=== PATIENT | female | born 2005 | race Caucasian/White ===

== ENCOUNTER 2024-03-02 11:11 | Outpatient (CLI) | payer OTHER, SELFPAY ==
[2024-03-03 07:32] LABS: Varicella IgG Antibody <1.00 S/CO
== END 2024-03-02 11:12 | disposition home or self-care (01) ==
LOC: ANHLAB 11:13
PROVIDERS: Visit Provider Student in an Organized Health Care Education/Training Program
DX: Z34.90 Encounter for supervision of normal pregnancy, unspecified, unspecified trimester (principal)
CPT/HCPCS: 36415; 86644; 86747; 86787

== ENCOUNTER 2024-04-18 14:14 | Outpatient (CLI) | payer OTHER, SELFPAY ==
[2024-04-18 20:36] LABS: Basophils Absolute Auto 0.1 K/mm3 (0.0-0.1); Basophils Percent Auto 0.3 % (0.2-1.2); Eosinophils Absolute Auto 0.2 K/mm3 (0-0.3); Eosinophils Percent Auto 1.3 % (0-4.4); Hematocrit 32.9 % (37.0-47.0); Hemoglobin 10.4 g/dL (12.0-15.0); Immature Granulocyte Absolute 0.16 K/mm3 (0.00-0.031); Lymphocytes Absolute Auto 1.86 K/mm3 (0.9-3.2); Lymphocytes Percent Auto 11.8 % (18.3-44.2); Mean Corpuscular HGB Conc 31.6 g/dl (32-36); Mean Corpuscular Hemoglobin 31.7 pg (26-34); Mean Corpuscular Volume 100.3 fl (80-100); Mean Platelet Volume 10.6 fl (7.4-10.4); Monocytes Absolute Auto 1.1 K/mm3 (0.1-0.6); Monocytes Percent Auto 6.9 % (2.6-8.5); Neutrophils Absolute Auto 12.4 K/mm3 (1.3-6.7); Neutrophils Percent Auto 78.7 % (45.5-73.1); Platelet Count Result 346 k/mm3 (150-375); Red Blood Count 3.28 M/mm3 (4.2-5.4); Red Cell Distribution Width 12.7 % (11.5-14.5); White Blood Count 15.7 K/mm3 (4.5-10.0)
[2024-04-18 20:49] LABS: Glucose 1 Hour PP 50gm Dose 116 mg/dL
[2024-04-19 00:43] LABS: HIV 1/2 Ab P24 Ag Result Negative (Negative)
[2024-04-19 10:46] LABS: Rapid Plasma Reagin Non-Reactive (NonReactive)
== END 2024-04-18 14:15 | disposition home or self-care (01) ==
LOC: ANHGOSHLAB 14:15
PROVIDERS: Visit Provider Obstetrics & Gynecology
DX: Z34.90 Encounter for supervision of normal pregnancy, unspecified, unspecified trimester (principal)
CPT/HCPCS: 36415; 82947; 85025; 86592; 86703; G0432

== ENCOUNTER 2024-06-19 10:05 | Outpatient (CLI) | payer OTHER, SELFPAY ==
[2024-06-19 10:50] VITALS: BP 135/80; PULSE 98
[2024-06-19 11:06] LABS: OBXCEM ROM Plus Negative (Negative)
--- NOTE | 2024-06-19 18:40 | PM.OBTRLD ---
OB - Triage/Final Diagnosis Visit Information Date of evaluation: 06/19/24 Reason for evaluation: other (leaking) Comments/Additional reasons for admission: I have assessed the risk for this patient, Pavan Butler Noni, and determined that she would benefit from observation care. Evaluation Laboratory results: Laboratory Tests 06/19/24 10:45 Membranes Rupture Rom plus negative Vital signs: Vital Signs - 24 hr 06/19/24 10:50 Pulse Rate 98 Blood Pressure [Left Arm] 135/80
== END 2024-06-19 10:58 | disposition home or self-care (01) ==
LOC: ANHOBOP 10:48 → ANHLDR 10:54
PROVIDERS: Student in an Organized Health Care Education/Training Program; Visit Provider Obstetrics & Gynecology
DX: O42.90 Premature rupture of membranes, unspecified as to length of time between rupture and onset of labor, unspecified weeks of gestation (principal); Z3A.00 Weeks of gestation of pregnancy not specified
CPT/HCPCS: 59025; 84112; 99199

== ENCOUNTER 2024-07-08 05:10 | Inpatient (IN) | payer OTHER, SELFPAY ==
[2024-07-08] VITALS (178 sets, daily range): BP systolic 103–149; BP diastolic 52–99; PULSE 25–154; RESP 16; TEMP 36.3–37.1; O2SAT 74–100; BMI 36.6
--- NOTE | 2024-07-08 05:51 | LDADM ---
This patient, Pavan Cheney, was admitted to Labor/Delivery/Recovery 106 on 07/08/24 at 05:10. Plans for labor, pain management and were discussed with patient. Patient/family oriented to hospital policies and general routines including ID bracelet, bed and alarms, visiting hours, pain management, procedures, bathroom and other care routines, personal items, smoking policy, room service/diet and guest tray routines, security routines, and visiting hours. Patient/Family are encouraged to report perceived risks to care and to ask questions if they do not understand what they are told or what they should do. See OBIX for further documentation.
[2024-07-08 05:53] LABS: Basophils Absolute Auto 0.1 K/mm3 (0.0-0.1); Basophils Percent Auto 0.4 % (0.2-1.2); Eosinophils Absolute Auto 0.1 K/mm3 (0-0.3); Eosinophils Percent Auto 0.9 % (0-4.4); Hematocrit 35.8 % (37.0-47.0); Hemoglobin 11.6 g/dL (12.0-15.0); Immature Granulocyte Absolute 0.12 K/mm3 (0.00-0.031); Immature Granulocyte Percent A 0.9 % (0-0.5); Lymphocytes Absolute Auto 2.23 K/mm3 (0.9-3.2); Lymphocytes Percent Auto 16.1 % (18.3-44.2); Mean Corpuscular HGB Conc 32.4 g/dl (32-36); Mean Corpuscular Volume 98.6 fl (80-100); Mean Platelet Volume 11.7 fl (7.4-10.4); Monocytes Percent Auto 7.2 % (2.6-8.5); Neutrophils Absolute Auto 10.3 K/mm3 (1.3-6.7); Neutrophils Percent Auto 74.5 % (45.5-73.1); Platelet Count Result 242 k/mm3 (150-375); Red Blood Count 3.63 M/mm3 (4.2-5.4); Red Cell Distribution Width 13.5 % (11.5-14.5); White Blood Count 13.8 K/mm3 (4.5-10.0)
[2024-07-08] MEDS: LACTATED RINGERS 1,000 ML 125 ML IV CONT ×2 (05:59→08:18)
[2024-07-08] MEDS: OXYTOCIN 30 UNITS/NS 500 ML 30 UNITS/500 ML BAG 6 UNITS IV CONT (06:00)
--- NOTE | 2024-07-08 06:00 | P.PNAN_ITS ---
Anes - Eval Pre Procedure Procedure: labor epidural Date/Time: 07/08/24 06:00 Surgeon: selene Preop Diagnosis: pain during labor Pre Op Diagnosis: IOL Patient Data Age: 19 Gender: F Height: 1.65 m Weight: 100 kg Last Vital Signs O2 Del Method Room Air 07/08/24 05:50 Allergies Allergy/AdvReac Type Severity Reaction Status Date / Time No Known Allergies Allergy Verified 07/04/24 10:59 Home Medications ?Medication ?Instructions ?Recorded ?Confirmed ?Type vits no.126-ferrous fum tablet PO 01/04/24 07/04/24 History 28 mg iron-folic acid 800 mcg tablet (Classic ) lansoprazole 30 mg delayed 30 mg PO DAILY #30 tabs 01/15/24 07/04/24 Rx release,disintegrating tablet ferrous sulfate 325 mg (65 mg 325 mg PO DAILY 04/20/24 07/04/24 History iron) tablet Laboratory Tests 07/08/24 05:46 WBC 13.8 H K/mm3 (4.5-10.0) RBC 3.63 L M/mm3 (4.2-5.4) Hgb 11.6 L g/dL (12.0-15.0) Hct 35.8 L % (37.0-47.0) MCV 98.6 fl (80-100) MCH 32.0 pg (26-34) MCHC 32.4 g/dl (32-36) RDW 13.5 % (11.5-14.5) Plt Count 242 k/mm3 (150-375) MPV 11.7 H fl (7.4-10.4) Immature Gran % (Auto) 0.9 H % (0-0.5) Neut % (Auto) 74.5 H % (45.5-73.1) Lymph % (Auto) 16.1 L % (18.3-44.2) [place] % (Auto) 7.2 % (2.6-8.5) Eos % (Auto) 0.9 % (0-4.4) Baso % (Auto) 0.4 % (0.2-1.2) Lymph # (Auto) 2.23 K/mm3 (0.9-3.2) [place] # (Auto) 1.0 H K/mm3 (0.1-0.6) Eos # (Auto) 0.1 K/mm3 (0-0.3) Baso # (Auto) 0.1 K/mm3 (0.0-0.1) Abs Immat Gran (auto) 0.12 H K/mm3 (0.00-0.031) Absolute Neuts (auto) 10.3 H K/mm3 (1.3-6.7) Absolute Nucleated RBC 0.000 K/mm3 (0.0-0.012) Nucleated RBC % 0.0 % (0.0-0.2) HIV 1&2 Ab/P24 Ag 4thGn Pending Patient hx anesthesia problems: none Family hx anesthesia problems: none Results Review: All pre-operative results and documents have been reviewed as part of the pre- operative evaluation. [facility] Past Medical History Medical History (Updated 07/08/24 @ 06:00 by Jeanna Varela CRNA) Obesity (BMI 30-39.9) Esophagitis Surgical History Surgical History H/O esophagogastroduodenoscopy Family History Family History Grandparent Heart disease Diabetes mellitus Social History Social History Smoking status: Never smoker Alcohol intake: never Substance use: never Substance use type: does not use Do You Feel Safe in your Home?: Yes Lack of Transportation: No Lack of Food: Never True Current Housing: I Have Housing Concerned About Future Housing: No Difficulty Paying Gas/Electric Bills: No Difficulty Paying for Meds: No Currently Unemployed: No Education: High School Diploma/GED Difficulty w/ Childcare or Family Care: No Living arrangements: with family Occupation/Education: occupation Gender identity (if verbalized by the patient): Female Sexual Orientation (if Verbalized by the Patient): Straight or Heterosexual Spiritual care concerns: No Exam Day of Procedure 07/08/24 06:00
[2024-07-08 06:35] LABS: Syphilis IgG/IgM Antibody Negative (Negative)
[2024-07-08 06:48] LABS: HIV 1/2 Ab P24 Ag Result Negative (Negative)
[2024-07-08] MEDS: fentaNYL CITRATE INJ (*CRX) 100 MCG/2 ML VIAL IV PUSH (07:57)
--- NOTE | 2024-07-08 14:21 | WPDHPUPDATE1 ---
History and Physical Update Update Date/Time: 07/08/24 14:21 History and Physical has been reviewed, including an updated exam of the patient. There are NO changes in the patient's condition. Risks, benefits, and alternatives have been discussed and questions answered. Patient agrees to proceed with procedure.
--- NOTE | 2024-07-08 14:21 | WPDOBADMIT ---
Obstetrics - Admit Note Admission Note: record reviewed. No pertinent additions to the history and/or any subsequent changes in the physical findings that are not consistent with the expected course of the were found. Additions to the history and/or subsequent changes in the physical findings follow. None.
--- NOTE | 2024-07-08 14:21 | PM.OBPRVD ---
OB - Vaginal Delivery Note Procedure Delivery date: 07/08/24 Induction method: AROM and Per Pitocin Protocol Delivery monitor: External FHT and External Uterine Route of delivery: Episiotomy description: None Laceration Description: Perineal - 2nd Degree Delivery repair: chromic Specimen: Yes Quantitative Blood Loss (ml): 400 Anesthesia type: Epidural Disposition: Floor Complications: No immediate complications Narrative: Patient prepped draped usual manner for this procedure. Maternal expulsive efforts readily deliver vertex, rest of baby was delivered without difficulty. Cord was clamped and cut. Placenta delivered spontaneously. Uterus well contracted. Second-degree laceration was noted. This was approximated using 2 chromic running interlocking manner to approximate the vaginal tissue, subcuticular tissue was also approximated and perineal suture was used to approximate the skin edges. Uterus well contracted, no significant bleeding. Immediate postoperative condition the patient was excellent. Baby Gestational Age by Date: 40 Infant gender: Female presentation: vertex position: Left Occiput Anterior Placenta delivery description: Spontaneous Cord Vessel Description: 3 Vessels
[2024-07-08] MEDS: OXYTOCIN 30 UNITS/NS 500 ML 30 UNITS/500 ML BAG 125 UNITS IV CONT (14:30)
--- NOTE | 2024-07-08 17:45 | OBPPTRN ---
1745-Patient transferred to post room #285 via wheelchair. Support person present. Oriented to unit, room, information board, rooming in, admission packet and security measures. Patient verbalizes understanding.
--- NOTE | 2024-07-08 18:18 | PC.NURSE ---
Breast pump provided due to baby is in Level II Nursery and mother does not have her pump here with her. Instructions given on cleaning, care, usage, that there should be no pain, pumping schedule for milk production, collection, and storage of human milk. Patient was assessed for correct placement, flange size, to pump for comfort and nipple stretching/stimulation for adequate milk production every 3 hours (8 times in 24 hours) 1-2 times at night. Parents are encouraged to record the pumping schedule on the feeding sheet.?Mother voiced understanding of the education shared along with mom/baby guide and the pump measurement, flange fit handout for additional resource information. Reported to the Primary RN.
[2024-07-08] MEDS: IBUPROFEN 600 MG TABLET PO (22:34)
[2024-07-08] MEDS: ACETAMINOPHEN 325 MG TABLET 650 MG PO (22:34)
[2024-07-09 04:39] LABS: Hematocrit 32.4 % (37.0-47.0); Hemoglobin 10.2 g/dL (12.0-15.0)
[2024-07-09 08:00] VITALS: BP 120/74; PULSE 111; RESP 16; TEMP 36.4; O2SAT 98
[2024-07-09] MEDS: DOCUSATE SODIUM 100 MG CAPSULE PO (09:32)
[2024-07-09] MEDS: ACETAMINOPHEN 325 MG TABLET 650 MG PO ×3 (09:36→23:55)
[2024-07-09] MEDS: IBUPROFEN 600 MG TABLET PO ×3 (09:36→23:55)
--- NOTE | 2024-07-09 09:54 | P.PNOB_ITS ---
OB - PN: Subj Subjective Date/time seen: 07/09/24 09:54 Patient comments: pain well controlled, tolerating diet and other (Decreasing lochia.) baby status: doing well and nursing well [place] feeding status: exclusively breast feeding OB - PN: Obj Data Labs 07/09/24 04:03 Labs: Laboratory Results - last 24 hr 07/09/24 04:03 Hgb 10.2 L Hct 32.4 L OB - PN A/P Plan day: 1 Plan: routine care Comments: Patient doing well. Time Spent With Patient Time: Total time spent is greater than 50% in coordination of care (as documented) at patient's floor/unit and/or counseling patient: Exam 2 Psych: Affect: normal affect Other: Abd: fundus firm below umbilicus, nontender Perineum: healing Ext: nontender
[2024-07-09 20:00] VITALS: BP 130/81; PULSE 90; RESP 18; TEMP 36.5; O2SAT 100
--- NOTE | 2024-07-10 07:00 | P.PNOB_ITS ---
OB - PN: Subj Subjective Date/time seen: 07/10/24 07:00 Patient comments: pain well controlled, tolerating diet and other (Decreasing lochia.) baby status: doing well and nursing well OB - PN: Obj Data Labs 07/09/24 04:03 OB - PN A/P Plan day: 2 Plan: discharge home and other Comments: Patient doing well. Follow up 4-6 weeks. Discharge instructions provided. Time Spent With Patient Time: Total time spent is greater than 50% in coordination of care (as documented) at patient's floor/unit and/or counseling patient: Time with patient: less than 15 minutes Exam 2 Psych: Affect: normal affect Other: Abd: fundus firm below umbilicus, nontender Perineum: healing Ext: nontender
--- NOTE | 2024-07-10 07:01 | P.DS_ITS ---
DS: Admitting Diagnosis Discharge Date 07/10/24 Admitting Diagnosis Induction of labor DS: Discharge Diagnosis Discharge Diagnosis (1) Vaginal delivery: Code(s): O80 - Encounter for full-term uncomplicated delivery Status: Acute OB - DS: Summary Hospital Course Hospital Course: She was admitted for medical induction of labor. She had an uncomplicated vaginal delivery. She did well . She was discharged to home with baby on day 2. OB Procedures : Ultrasound OB Procedures Intrapartum: Spontaneous Vag Delivery OB Procedures: : None Peripartum Data Infant Delivery Method: Natural Vaginal Laceration Description: Perineal - 2nd Degree Episiotomy description: None complications: none Status at Discharge Functional status at discharge: independent ambulation Time Spent with Patient Time attestation: Total time spent providing and/or coordinating discharge services: Exam Const: General: cooperative Orientation/consciousness: oriented to person, oriented to place and oriented to time HENMT: Face/Nose/Sinus: Normal external nose present Eyes: General: appearance normal, both eyes and all related structures Resp: Effort & Inspection: normal respiratory effort GI: Inspection: normal to inspection Skin: General skin exam: normal color Neuro: General: oriented to person, oriented to place and oriented to time Extrem: General: normal to inspection and no calf tenderness Psych: Appearance: grossly normal Mental Status: mental status grossly normal Discharge Plan Discharge Attending physician on discharge: Rick Houston Consulting providers: Jeanna Varela Discharging Clinician: Jhony Martel Anticipated Discharge Date/Time: 07/10/24 07:09 Patient Disposition: Home Activity: may shower and pelvic rest Diet: regular Patient Instructions: Antibiotic Form Patient Language: Serbian Stand Alone Forms: General Discharge Information Follow-up/Referrals: Rick Houston MD [Physician] - Call for Appointment Discharge Medications: Continued Classic 28 mg iron- 800 mcg tablet 1 tablet PO DAILY lansoprazole 30 mg tablet,disintegrat, delay rel 30 mg PO DAILY Qty: 30 3RF No Action ferrous sulfate 325 mg (65 mg iron) tablet 325 mg PO DAILY Date of admission: 07/08/24 05:10 Primary Care Provider: UNKNOWN,DOCTOR Admitting Provider: Rick Houston Attending physician on admission: Rick Houston Condition: Stable
[2024-07-10 08:00] VITALS: BP 118/69; PULSE 96; RESP 16; TEMP 37.3; O2SAT 98
[2024-07-10] MEDS: IBUPROFEN 600 MG TABLET PO (09:19)
[2024-07-10] MEDS: DOCUSATE SODIUM 100 MG CAPSULE PO (09:19)
[2024-07-10] MEDS: ACETAMINOPHEN 325 MG TABLET 650 MG PO (09:19)
[2024-07-10] MEDS: MEASLES,MUMPS,RUBELLA VACCINE 0.5 ML VIAL SUB-Q (10:53)
--- NOTE | 2024-07-10 11:34 | PC.NURSE ---
Patient viewed the discharge video Mother & Baby Care, The First Two Weeks . Patient was given the opportunity and encouraged to ask questions. Patient verbalized understanding of information shared and has been given the mother/baby guide for home reference.
--- NOTE | 2024-07-11 13:00 | PC.NURSE ---
Follow up RN called to request a consult with this patient. She delivered over the weekend when there was no support. Mom was given a nipple shield and started pumping. She is wanting to latch without the shield. Baby is eager and awake so we placed her at breast and mom needed minimal assistance to latch her in cradle hold. Mom says she did not like cross cradle hold. Baby had some cheek dimpling and was off and on the breast after every suckling burst. Milk was noted to be dripping from mom's nipple and she states that her breasts feel very full and firm today. We reviewed signs of a deep latch and we moved baby into a football hold to see if that assisted her to maintain a latch more efficiently. Baby did quite well in football and was not off/on as much with an increase in swallows noted and no cheek dimpling. Mom states the latch is not painful. Mom is encouraged to use the nipple shield if needed but we discussed ways to wean from the shield as well as how often to pump while using the shield. Mom has a good routine for pumping when baby doesn't feed at both breasts. We reviewed stool output and color and noting that the breast feels empty after feedings. Mom was concerned that last night baby was very fussy and we reviewed normal behaviors and ways to calm and support . Mom is advised to continue feeding on demand as she has been. Baby's weight loss is WNL at 7%. Baby is voiding often (at least 4 times in the last 24 hours). Dad is present and supportive. Mother has the phone number on her discharge papers and is strongly encouraged to call if she needs and further guidance or assistance.
[2024-07-11 13:11] VITALS: BP 131/82; PULSE 95; RESP 20; TEMP 36.4; O2SAT 100
== END 2024-07-10 12:40 | disposition home or self-care (01) | DRG 807 ==
LOC: ANHLDR 05:41 → ANHOB2 07-10 07:09 → ANHLDR 07-12 08:31 → ANHOB2 07-12 08:31
PROVIDERS: Admitting Provider Obstetrics & Gynecology; Visit Provider Obstetrics & Gynecology
DX: O70.1 Second degree perineal laceration during delivery (principal); Z37.0 Single live birth; Z3A.40 40 weeks gestation of pregnancy
CPT/HCPCS: 36415; 85014; 85018; 85025; 86593; 86703; 86850; 86900; 86901; 90710; A9270; G0432; J2590; J2795; J3010; J7120

== ENCOUNTER 2024-12-28 13:51 | Outpatient (CLI) | payer OTHER, SELFPAY ==
[2024-12-28 19:33] LABS: Beta HCG Quantitative < 2.39 mIU/ML
== END 2024-12-28 13:52 | disposition home or self-care (01) ==
LOC: ANHGOSHLAB 13:53
PROVIDERS: Visit Provider Student in an Organized Health Care Education/Training Program
DX: Z30.49 Encounter for surveillance of other contraceptives (principal)
CPT/HCPCS: 36415; 84702